=== PATIENT | female | born 1990 | race Caucasian/White ===

== ENCOUNTER 2017-04-21 10:05 | Emergency (ER) | payer MEDICAID ==
[~2017-04-21] VITALS: Ht 170.2 cm; Wt 70.6 kg
[~2017-04-21 10:05] MED LIST: CETI10CA PO; FERR27TA; GUAI120S26 PO; IBUP-1542 PO; PREN1TAB12
[2017-04-21 10:20] VITALS: Ht 170.2 cm; Wt 70.6 kg
[2017-04-21] MEDS ORDERED: ACETAMINOPHEN 500 MG TAB PO STA (10:47)
[2017-04-21] MEDS ORDERED: OSLT75C PO (10:48)
[2017-04-21] MEDS ORDERED: IBUP800T25 PO (10:48)
[2017-04-21] MEDS ORDERED: ACET325T33 PO (10:48)
--- NOTE | 2017-04-21 10:56 | ERD ---
ER Documentation Chief Complaint Chief Complaint ST AND FEVER BODYACHES HPI 26-year-old female complaining of sore throat and fever with body aches 1 day. She has not taken medications for her symptoms. Has a dry cough with runny nose. Denies vomiting. Denies chest pain or shortness of breath. Denies abdominal pain. Denies sick contacts. Denies medical problems. NKDA. ROS All systems reviewed and are negative except as per history of present illness. Medications Home Meds Active Scripts Ibuprofen* (Motrin*) 800 Mg Tab, 800 MG PO Q6, #30 TAB Prov:MONICA BUCHANAN PA-C 04/21/17 Acetaminophen* (Tylenol*) 325 Mg Tablet, 2 TAB PO Q8 Y for PAIN AND OR ELEVATED TEMP, #20 TAB Prov:MONICA BUCHANAN PA-C 04/21/17 Oseltamivir Phosphate* (Tamiflu*) 75 Mg Capsule, 75 MG PO BID for 5 Days, CAP Prov:MONICA BUCHANAN PA-C 04/21/17 Ibuprofen* (Motrin*) 600 Mg Tab, 600 MG PO Q6H Y for PAIN AND OR ELEVATED TEMP, #30 TAB Prov:LAQUITA CAMP NP 01/24/16 Cetirizine Hcl* (Zyrtec*) 10 Mg Capsule, 10 MG PO DAILY, #30 TAB.CHEW Prov:LAQUITA CAMP NP 01/24/16 Hdzndqgzmbu-J-Lfjmdnfdtu Hb* (Guaifenesin* DM Syrup) 120 Ml Syrup, 10 ML PO Q4H Y for COUGH, #120 ML Prov:LAQUITA CAMP NP 01/24/16 Reported Medications Ferrous Sulfate (Iron) 1 Tab Tablet 12/19/09 Vit/Fe Fumarate/Fa ( 1-1 Tablet) 1 Tab Tablet 12/19/09 Allergies Allergies: Coded Allergies: No Known Allergy (Verified , 12/16/13) PMhx/Soc History of Surgery: Yes (tubal ligation) Anesthesia Reaction: No Hx Neurological Disorder: No Hx Respiratory Disorders: No Hx Cardiac Disorders: No Hx Psychiatric Problems: No Hx Miscellaneous Medical Probl: No Hx Alcohol Use: No Hx Substance Use: No Hx Tobacco Use: No Physical Exam Vitals Vital Signs Date Time Temp Pulse Resp B/P Pulse Ox O2 Delivery O2 Flow Rate FiO2 04/21/17 10:20 101.2 107 18 131/77 100 Physical Exam GENERAL: The patient is well-appearing, well-nourished, in no acute distress HEENT: Atraumatic. Conjunctivae are pink. Pupils equal, round, and reactive to light. There is no scleral icterus. Tympanic membranes clear bilaterally. Oropharynx clear. No nystagmus or photophobia. NECK: C-spine is soft and supple. There is no meningismus. There is no cervical lymphadenopathy. CHEST: Clear to auscultation bilaterally. There are no rales, wheezes or rhonchi. HEART: Regular rate and rhythm. No murmurs, clicks, rubs or gallops. No S3 or S4. ABDOMEN:Soft, nontender and nondistended. Good bowel sounds. No rebound or guarding. No gross peritonitis. No gross organomegaly or masses. No Joyce sign or McBurney point tenderness. Results 24 hrs Current Medications Medications (Trade) Dose Ordered Sig/Nj Route PRN Reason Start Time Stop Time Status Last Admin Dose Admin Ibuprofen (Motrin) 800 mg ONCE ONCE PO 04/21/17 11:00 04/21/17 11:01 Acetaminophen (Tylenol Tab) 1,000 mg ONCE STAT PO 04/21/17 10:47 04/21/17 10:48 DC Procedures/MDM ER Course: Tylenol and ibuprofen MDM: 26 yr old female complaining of body aches, fever and uri symptoms. Patient's exam is non-concerning. I have low suspicion for bacterial HEENT infection. I have low suspicion for pneumonia. I have low suspicion for meningitis or sepsis. Patient likely has viral illness with fever. I have low suspicion for acute abdomen. Exam is non-concerning. I do not feel that blood work or imaging was indicated at today's visit. Patient is recommended to take antipruritics and told to follow-up with primary care within 1-2 days for close evaluation. Patient is told if symptoms change or worsen to return the ER. All questions answered at discharge. Departure Diagnosis: Primary Impression: Sore throat Condition: Stable Patient Instructions: Fever Control (Adult), Viral Syndrome (Adult) Referrals: COMM[facility]ITY CLIN[facility] YOU HAVE RECEIVED A MEDICAL SCREENING EXAM AND THE RESULTS INDICATE THAT YOU DO NOT HAVE A CONDITION THAT REQUIRES URGENT TREATMENT IN THE EMERGENCY DEPARTMENT. FURTHER EVALUATION AND TREATMENT OF YOUR CONDITION CAN WAIT UNTIL YOU ARE SEEN IN YOUR DOCTORS OFFICE WITHIN THE NEXT 1-2 DAYS. IT IS YOUR RESPONSIBILITY TO MAKE AN APPOINTMENT FOR FOLOW-UP CARE. IF YOU HAVE A PRIMARY DOCTOR --you should call your primary doctor and schedule an appointment IF YOU DO NOT HAVE A PRIMARY DOCTOR YOU CAN CALL OUR PHYSICIAN REFERRAL HOTLINE AT IF YOU CAN NOT AFFORD TO SEE A PHYSICIAN YOU CAN CHOSE FROM THE FOLLOWING [facility] CLINICS [facility] [address] [facility]. [facility] [address] [facility] [facility]. [facility] [address] [facility] [address] [facility] [address] [facility]. [facility] [address] Additional Instructions: FOLLOW UP WITH YOUR PRIMARY CARE PHYSICIAN TOMORROW.Return to this facility if you are not improving as expected. MONICA BUCHANAN PA-C Apr 21, 2017 10:56
[2017-04-21] MEDS ORDERED: IBUPROFEN 800 MG TAB PO ONE (11:00)
== END 2017-04-21 11:24 | disposition home or self-care (01) ==
LOC: FTE 10:05
DX: J02.9 Acute pharyngitis, unspecified (principal)
CPT/HCPCS: Z7502; Z7610; 99283

== ENCOUNTER 2018-02-18 09:17 | Emergency (ER) | END 2018-02-18 11:34 | disposition home or self-care (01) ==

== ENCOUNTER 2018-11-24 15:48 | Emergency (ER) | payer OTHER ==
[~2018-11-24] VITALS: Wt 72.7 kg
[~2018-11-24 15:48] MED LIST changes: +ACET325T33 PO; +CEPH-443 PO; +GUAI120S25 PO; -GUAI120S26 PO; +IBUP800T48 PO; +ONDA4TAB14 PO; +OSEL75CA23 PO
[2018-11-24 16:57] VITALS: BP 128/70; PULSE 85; RESP 20
[2018-11-24] MEDS ORDERED: AMOX500C2 PO (17:54)
[2018-11-24] MEDS ORDERED: IBUP-1561 PO (17:54)
[2018-11-24] MEDS ORDERED: CHLO118L3 TOP (17:56)
[2018-11-24] MEDS ORDERED: DEXAMETHASONE 10 MG/ML 1 ML INJ IM ONE (18:00)
--- NOTE | 2018-11-24 18:14 | ERD ---
ER Documentation Chief Complaint Chief Complaint SORE THROAT, FEVER HPI 28-year-old Danish speaking female presents with complaints of left-sided sore throat for the past 2 days. She also reports subjective fevers at home. She has mild pain when swallowing and has noticed sores to the back of her throat. No drooling. She is able to open and close her mouth fully. No cough or shortness of breath. No recent antibiotics. ROS All systems reviewed and are negative except as per history of present illness. Medications Home Meds Active Scripts Ibuprofen* (Motrin*) 400 Mg Tab, 400 MG PO Q6H PRN for PAIN AND OR ELEVATED TEMP, #30 TAB Prov:ANANDIGRELZBIETA PRUITT-C 11/24/18 Amoxicillin* (Amoxicillin*) 500 Mg Cap, 500 MG PO TID for 7 Days, CAP Prov:ELZBIETA SIMONS-C 11/24/18 Ondansetron (Ondansetron Odt) 4 Mg Tab.rapdis, 4 MG PO Q6H PRN for NAUSEA AND/OR VOMITING, #10 TAB Prov:JUANITA BELLO PA-C 02/18/18 Cephalexin* (Keflex*) 500 Mg Capsule, 500 MG PO QID for 7 Days, CAP Prov:JUANITA BELLO PA-C 02/18/18 Ibuprofen* (Motrin*) 800 Mg Tab, 800 MG PO Q6, #30 TAB Prov:MONICA BUCHANAN PA-C 04/21/17 Acetaminophen* (Tylenol*) 325 Mg Tablet, 2 TAB PO Q8 PRN for PAIN AND OR ELEVATED TEMP, #20 TAB Prov:MONICA BUCHANAN PA-C 04/21/17 Oseltamivir Phosphate* (Tamiflu*) 75 Mg Capsule, 75 MG PO BID for 5 Days, CAP Prov:MONICA BUCHANAN PA-C 04/21/17 Ibuprofen* (Motrin*) 600 Mg Tab, 600 MG PO Q6H PRN for PAIN AND OR ELEVATED TEMP, #30 TAB Prov:LAQUITA CAMP NP 01/24/16 Cetirizine Hcl* (Zyrtec*) 10 Mg Capsule, 10 MG PO DAILY, #30 TAB.CHEW Prov:LAQUITA CAMP NP 01/24/16 Bopzgbngkei-E-Fjwcztbugs Hb* (Guaifenesin* DM Syrup) 120 Ml Syrup, 10 ML PO Q4H PRN for COUGH, #120 ML Prov:CONRADOLAQUITA 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 01/24/16 Reported Medications Ferrous Sulfate (Iron) 1 Tab Tablet 12/19/09 Vit/Fe Fumarate/Fa ( 1-1 Tablet) 1 Tab Tablet 12/19/09 Discontinued Scripts Chlorhexidine Gluconate* (Chlorhexidine Gluconate*) 118 Ml Liquid, 15 ML TOP BID for 7 Days, #200 ML Prov:ELZBIETA SIMONS Jono PA-C 11/24/18 Allergies Allergies: Coded Allergies: No Known Allergy (Verified , 12/16/13) PMhx/Soc History of Surgery: Yes (tubal ligation) Anesthesia Reaction: No Hx Neurological Disorder: No Hx Respiratory Disorders: No Hx Cardiac Disorders: No Hx Psychiatric Problems: No Hx Miscellaneous Medical Probl: No Hx Alcohol Use: No Hx Substance Use: No Hx Tobacco Use: No Smoking Status: Never smoker Physical Exam Vitals Vital Signs Date Temp Pulse Resp B/P (MAP) Pulse Ox O2 O2 Flow FiO2 Time Delivery Rate 11/24/18 99.9 85 20 128/70 99 16:57 (89) Physical Exam Const: No acute distress Head: Atraumatic Eyes: Normal Conjunctiva ENT: EOMI. + Posterior OP erythema. Bilateral tonsillar 2+ edema with small exudates. Uvula midline. Normal phonation. Neck: Full range of motion. No meningismus. No trismus. + Lymphadenopathy. Resp: Clear to auscultation bilaterally Ext: No cyanosis, or edema Neur: Awake and alert Psych: Normal Mood and Affect Results 24 hrs Current Medications Medications Dose Sig/Nj Start Time Status Last (Trade) Ordered Route PRN Stop Time Admin Dose Reason Admin 10 mg ONCE ONCE 11/24/18 DC 11/24/18 Dexamethasone IM 18:00 11/24/18 17:56 (Decadron) 18:01 Procedures/MDM ED COURSE: The patient was given IM Decadron The medication was well tolerated and the patient had market improvement in symptoms. The patient remained stable throughout ED course. MEDICAL DECISION MAKING: This is a 28-year-old female presents with throat pain. Patient meets 3/5 [facility] criteria. Will treat for presumed bacterial pharyngitis with antibiotics. She was given IM Decadron here. No evidence of peritonsillar abscess, Arslan's angina, meningitis, mastoiditis or any other emergent condition. Vital signs are normal. She is in no respiratory distress. She can be discharged home with antibiotics and supportive medications. Recommend PCP follow-up in 1 week. Strict return precautions were discussed. PRESCRIPTIONS: Amoxicillin, ibuprofen SPECIALIST FOLLOW UP RECOMMENDED: None Patient has been advised to follow up with primary care in 1-2 days. Departure Diagnosis: Primary Impression: Pharyngitis Pharyngitis/tonsillitis etiology: unspecified etiology Qualified Codes: J02.9 - Acute pharyngitis, unspecified Condition: Stable Patient Instructions: Pharyngitis, Strep (Presumed) Referrals: [facility] YOU HAVE RECEIVED A MEDICAL SCREENING EXAM AND THE RESULTS INDICATE THAT YOU DO NOT HAVE A CONDITION THAT REQUIRES URGENT TREATMENT IN THE EMERGENCY DEPARTMENT. FURTHER EVALUATION AND TREATMENT OF YOUR CONDITION CAN WAIT UNTIL YOU ARE SEEN IN YOUR DOCTORS OFFICE WITHIN THE NEXT 1-2 DAYS. IT IS YOUR RESPONSIBILITY TO MAKE AN APPOINTMENT FOR [facility]. IF YOU HAVE A PRIMARY DOCTOR --you should call your primary doctor and schedule an appointment IF YOU DO NOT HAVE A PRIMARY DOCTOR YOU CAN CALL OUR PHYSICIAN REFERRAL HOTLINE AT IF YOU CAN NOT AFFORD TO SEE A PHYSICIAN YOU CAN CHOSE FROM THE FOLLOWING [facility] [address] [facility]. [facility] [address] [facility]. [facility] [address] [facility] [facility] [address] [facility]. [facility] [address] [facility]. [facility]. [address] [facility]. [facility] YOU HAVE RECEIVED A MEDICAL SCREENING EXAM AND THE RESULTS INDICATE THAT YOU DO NOT HAVE A CONDITION THAT REQUIRES URGENT TREATMENT IN THE EMERGENCY DEPARTMENT. FURTHER EVALUATION AND TREATMENT OF YOUR CONDITION CAN WAIT UNTIL YOU ARE SEEN IN YOUR DOCTORS OFFICE WITHIN THE NEXT 1-2 DAYS. IT IS YOUR RESPONSIBILITY TO MAKE AN APPOINTMENT FOR FOLOW-UP CARE. IF YOU HAVE A PRIMARY DOCTOR --you should call your primary doctor and schedule and appointment IF YOU DO NOT HAVE A PRIMARY DOCTOR YOU CAN CALL OUR PHYSICIAN REFERRAL HOTLINE AT . IF YOU CAN NOT AFFORD TO SEE A PHYSICIAN YOU CAN CHOSE FROM THE FOLLOWING [facility] INSTITUTIONS: [facility] [id number] [place] [id number] [place] [address] [address] [place], [place] [id number] [place] [address] + [facility] [address] [place] [address] Additional Instructions: Paciente aconseja volver a Departamento de urgencias inmediatamente para sntomas nuevos o que empeoran . Paciente aconseja posteriores con el PCP en 1-2 taylor. Si el paciente no tiene ninguna de atencin primaria pueden seguir con [address] [address] o [facility] + [facility] [address] [place] [id number] ELZBIETA SIMONS PA-C Nov 24, 2018 18:14
== END 2018-11-24 18:04 | disposition home or self-care (01) ==
LOC: FTE 15:48
DX: J02.9 Acute pharyngitis, unspecified (principal)
CPT/HCPCS: 96372; J1100; Z7502

== ENCOUNTER 2018-12-17 13:11 | Emergency (ER) | payer OTHER ==
[~2018-12-17] VITALS: Ht 165.1 cm; Wt 79.8 kg
[~2018-12-17 13:11] MED LIST changes: +AMOX500C2 PO; +IBUP-1561 PO
[2018-12-17 13:16] VITALS: RESP 20; Ht 165.1 cm; Wt 79.8 kg
[2018-12-17] MEDS ORDERED: ONDANSETRON 4 MG INJ IV STA (13:24)
[2018-12-17] MEDS ORDERED: SOD CHLORIDE 0.9% 1,000 ML IV STA (13:24)
[2018-12-17] MEDS ORDERED: KETOROLAC 15 MG INJ IV STA (13:24)
[2018-12-17] MEDS ORDERED: CEFTRIAXONE 1 GM/50 ML (PMX) 50 ML IVPB ONE (13:30)
--- NOTE | 2018-12-17 14:03 | ERD ---
ER Documentation Chief Complaint Chief Complaint Pt. c/o sore throat and fever, started today HPI 28-year-old female, previously healthy, presents to the emergency department, complaining of 1 day with fever, associated with sore throat and body aches. The patient is also complaining of pelvic discomfort and increased urinary freq uency. Otherwise, no nausea or vomiting, no rashes, no headache, no neck pain, no distal weakness, numbness or tingling. ROS All systems reviewed and are negative except as per history of present illness. Medications Home Meds Active Scripts Acetaminophen* (Tylenol*) 325 Mg Tablet, 2 TAB PO Q6 PRN for PAIN AND OR ELEVATED TEMP, #20 TAB Prov:EDIN KITCHEN MD 12/17/18 Ciprofloxacin Hcl* (Ciprofloxacin Hcl*) 250 Mg Tablet, 250 MG PO BID for 7 Days, #14 TAB Prov:EDIN KITCHEN MD 12/17/18 Ibuprofen* (Motrin*) 400 Mg Tab, 400 MG PO Q6H PRN for PAIN AND OR ELEVATED TEMP, #30 TAB Prov:ELZBIETA SIMONS PA-C 11/24/18 Amoxicillin* (Amoxicillin*) 500 Mg Cap, 500 MG PO TID for 7 Days, CAP Prov:ELZBIETA SIMONS PA-C 11/24/18 Ondansetron (Ondansetron Odt) 4 Mg Tab.rapdis, 4 MG PO Q6H PRN for NAUSEA AND/OR VOMITING, #10 TAB Prov:JUANITA BELLO PA-C 02/18/18 Cephalexin* (Keflex*) 500 Mg Capsule, 500 MG PO QID for 7 Days, CAP Prov:JUANITA BELLO PA-C 02/18/18 Ibuprofen* (Motrin*) 800 Mg Tab, 800 MG PO Q6, #30 TAB Prov:MONICA BUCHANAN PA-C 04/21/17 Acetaminophen* (Tylenol*) 325 Mg Tablet, 2 TAB PO Q8 PRN for PAIN AND OR ELEVATED TEMP, #20 TAB Prov:MONICA BUCHANAN PA-C 04/21/17 Oseltamivir Phosphate* (Tamiflu*) 75 Mg Capsule, 75 MG PO BID for 5 Days, CAP Prov:MONICA BUCHANAN PA-C 04/21/17 Ibuprofen* (Motrin*) 600 Mg Tab, 600 MG PO Q6H PRN for PAIN AND OR ELEVATED TEMP, #30 TAB Prov:LAQUITA CAMP NP 01/24/16 Cetirizine Hcl* (Zyrtec*) 10 Mg Capsule, 10 MG PO DAILY, #30 TAB.CHEW Prov:LAQUITA CAMP NP 01/24/16 Rignolmlxwi-Y-Xepoiaplfm Hb* (Guaifenesin* DM Syrup) 120 Ml Syrup, 10 ML PO Q4H PRN for COUGH, #120 ML Prov:LAQUITA CAMP NP 01/24/16 Reported Medications Ferrous Sulfate (Iron) 1 Tab Tablet 12/19/09 Vit/Fe Fumarate/Fa ( 1-1 Tablet) 1 Tab Tablet 12/19/09 Allergies Allergies: Coded Allergies: No Known Allergy (Verified , 12/16/13) PMhx/Soc History of Surgery: Yes (tubal ligation) Anesthesia Reaction: No Hx Neurological Disorder: No Hx Respiratory Disorders: No Hx Cardiac Disorders: No Hx Psychiatric Problems: No Hx Miscellaneous Medical Probl: No Hx Alcohol Use: No Hx Substance Use: No Hx Tobacco Use: No FmHx Family History: No diabetes, No coronary disease Physical Exam Vitals Vital Signs Date Temp Pulse Resp B/P (MAP) Pulse Ox O2 O2 Flow FiO2 Time Delivery Rate 12/17/18 99.5 80 119/59 15:44 (79) 12/17/18 100.8 15:02 12/17/18 102.7 107 20 130/91 97 13:16 (104) Physical Exam Patient alert, oriented, vital signs stable. HEAD: Normocephalic, atraumatic. EYES: PERRLA, EOMI, Sclera and conjunctiva appear normal. NOSE: Clear and patent nostrils. EARS: Canals clear, tympanic membranes WNL. MOUTH: normal lips and tongue, no oral lesions. THROAT: Erythematous oropharynx, tonsils enlarged with bilateral discrete exudates. NECK: Supple, No lymphadenopathy. Full ROM without pain or tenderness. HEART: RRR, no rubs, murmurs, clicks or gallops. LUNGS: Clear to auscultation. ABDOMEN: Soft, non-tender without masses or hepatosplenomegaly. EXTREMITIES: No edema bilaterally. BACK: Full ROM, no deformity, normal back exam NEURO: Cranial nerves grossly intact, no motor or sensory deficit SKIN: No rashes, no petechia. Result Diagram: 12/17/18 1335 12/17/18 1335 Results 24 hrs Laboratory Tests Test 12/17/18 13:35 12/17/18 13:44 12/17/18 13:51 White Blood Count 14.3 10^3/ul Red Blood Count 4.39 10^6/ul Hemoglobin 11.2 g/dl Hematocrit 36.1 % Mean Corpuscular Volume 82.2 fl Mean Corpuscular Hemoglobin 25.5 pg Mean Corpuscular 31.0 g/dl Hemoglobin Concent Red Cell Distribution Width 15.6 % Platelet Count 292 10^3/UL Mean Platelet Volume 11.1 fl Immature Granulocytes % 0.300 % Neutrophils % 84.2 % Lymphocytes % 7.3 % Monocytes % 7.6 % Eosinophils % 0.3 % Basophils % 0.3 % Nucleated Red Blood Cells % 0.0 /100WBC Immature Granulocytes # 0.050 10^3/ul Neutrophils # 12.1 10^3/ul Lymphocytes # 1.0 10^3/ul Monocytes # 1.1 10^3/ul Eosinophils # 0.0 10^3/ul Basophils # 0.0 10^3/ul Nucleated Red Blood Cells # 0.0 10^3/ul Urine Color YELLOW Urine Clarity SLIGHTLY CLOUDY Urine pH 7.0 Urine Specific [place] 1.020 Urine Ketones NEGATIVE mg/dL Urine Nitrite NEGATIVE mg/dL Urine Bilirubin NEGATIVE mg/dL Urine Urobilinogen NEGATIVE mg/dL Urine Leukocyte Esterase 3+ Randy/ul Urine Microscopic RBC 13 /HPF Urine Microscopic WBC 21 /HPF Urine Squamous Epithelial Cells FEW /HPF Urine Hemoglobin 1+ mg/dL Urine Glucose NEGATIVE mg/dL Urine Total Protein NEGATIVE mg/dl Sodium Level 140 mmol/L Potassium Level 3.5 mmol/L Chloride Level 106 mmol/L Carbon Dioxide Level 22 mmol/L Anion Gap 12 Blood Urea Nitrogen 11 mg/dl Creatinine 0.79 mg/dl Est Glomerular Filtrat > 60 mL/min Rate mL/min Glucose Level 136 mg/dl Calcium Level 9.3 mg/dl Lipase 225 U/L POC Beta HCG, Qualitative NEGATIVE POC Venous Lactate 1.6 mmol/L Current Medications Medications Dose Sig/Nj Start Time Status Last (Trade) Ordered Route PRN Stop Time Admin Dose Reason Admin Sodium 1,000 ml @ Q1H STAT 12/17/18 DC 12/17/18 Chloride 1,000 mls/hr IV 13:24 13:59 12/17/18 14:23 Ondansetron 4 mg ONCE STAT 12/17/18 DC 12/17/18 HCl (Zofran IV 13:24 13:58 Inj) 12/17/18 13:26 Ketorolac 15 mg ONCE STAT 12/17/18 DC 12/17/18 Tromethamine IV 13:24 13:59 (Toradol) 12/17/18 13:26 Ceftriaxone 50 ml @ ONCE ONCE 12/17/18 DC 12/17/18 Sodium 100 mls/hr IVPB 13:30 13:59 12/17/18 13:59 650 mg ONCE ONCE 12/17/18 DC 12/17/18 Acetaminophen PO 15:00 15:02 (Tylenol 12/17/18 15:01 Tab) Procedures/MDM Differential diagnosis include but not limited to: UTI, colitis, gastroenteritis, kidney stones, irritable bowel syndrome, inflammatory bowel syndrome, malabsorption syndrome, cholelithiasis, food intolerance, medication side effect, pancreatitis, diverticulitis, bowel obstruction. Low suspicion for acute abdomen Physical examination and clinical presentation consistent most likely with urin adele tract infection. During the ED course the patient remained stable, no new complaints. The patient received treatment with IV fluids and IV medications presenting overall improvement of the symptoms. Results and clinical impression discussed with patient who agrees with management. The patient is stable to be treated outpatient and will be discharged home, some side effects of prescribed medications (headache, rash, nausea, vomiting, diarrhea, drowsiness, habituation, bleeding, hypertension, interactions with other medications) were reviewed. The patient was instructed to follow up with the primary care provider in the next 48h. If symptoms persist, worsen or new symptoms develop, then patient should return to the ED immediately. Instructions explained and given directly by me to the patient with acknowledgment and demonstrated understanding. Disclaimer: Inadvertent spelling and grammatical errors are likely due to EHR/dictation software use and do not reflect on the overall quality of patient care. Also, please note that the electronic time recorded on this note does not necessarily reflect the actual time of the patient encounter. Departure Diagnosis: Primary Impression: UTI (urinary tract infection) Additional Impression: Pyelonephritis Condition: Stable Additional Instructions: Is Muchas tushar por [facility] para gardner servicio. Esperamos que en gardner visita a la batsheva de emergencia gardner problema medico haya sido solucionado y que se sienta mucho mejor. Para estar seguros que gardner mejoria sigue en proceso, le pedimos el favor de hacer rachel ophelia de seguimiento medico con gardner doctor primario en los proximos 2-4 solo. Lleve con usted estos documentos y las medicinas recetadas. Si beatrice sintomas empeoran, NO SE ESPERE, por favor regrese a batsheva de emergencia INMEDIATAMENTE. En nakul que usted no tenga un mdico de atencin primaria: Llame al mdico o clnica comunitaria de referencia que aparece abajo joyce la s horas de consultorio para hacer rachel ophelia para que le vean. CLINICAS: [facility] [phone] [address] [facility] [phone] [address] [facility] [phone] [address] [facility] [phone] [address] [facility]. [place] [id number] [phone] [facility] [phone] [place] Dec 17, 2018 14:03
[2018-12-17] MEDS ORDERED: ACETAMINOPHEN 325 MG TAB PO ONE (15:00)
[2018-12-17] MEDS ORDERED: ACET325T33 PO (15:17)
[2018-12-17] MEDS ORDERED: CIPR-193 PO (15:17)
[2018-12-17 15:44] VITALS: BP 119/59; PULSE 80
== END 2018-12-17 15:45 | disposition home or self-care (01) ==
LOC: FTE 13:11
DX: N39.0 Urinary tract infection, site not specified (principal); N12 Tubulo-interstitial nephritis, not specified as acute or chronic
CPT/HCPCS: 36415; 80048; 81001; 81025; 83605; 83690; 85025; 87040; 87086; 96365; 96366; 96375; J0696; J1885; J2405; J7030; Z7502; Z7610

== ENCOUNTER 2019-01-17 10:30 | Emergency (ER) | payer OTHER ==
[~2019-01-17] VITALS: Wt 78.0 kg
[~2019-01-17 10:30] MED LIST changes: +AZIT250T PO; +CIPR-193 PO; +D-ME473S2 PO; +ETHI1TAB24 PO; +MENT7.6L MM
[2019-01-17 10:38] VITALS: BP 126/64; PULSE 64; RESP 18
== END 2019-01-17 15:30 | disposition home or self-care (01) ==
LOC: E/R 10:30
DX: N93.9 Abnormal uterine and vaginal bleeding, unspecified (principal)
CPT/HCPCS: 76830; 76856; 80053; 81001; 84703; 85025